=== PATIENT | female | born 2000 | race Native Hawaiian/Other Pacific Islander ===

== ENCOUNTER → 2020-03-11 | Outpatient (CLI) | payer MEDICAID ==
--- NOTE | 2020-03-11 16:55 | RADIOLOGY REPORT (SQ) ---
EXAM DESCRIPTION: U/S [id number] TRNABD 1GES W/ODOP IMAGES COMPLETED DATE/TIME: 03/11/2020 3:39 pm REASON FOR STUDY: Z34.81 ENCOUNTER FOR SUPRVSN OF NORMAL , FIRST TRIMESTER Z34.81 ENCOUNTE R FOR SUPRVSN OF NORMAL , FIRST TRIM COMPARISON: None. TECHNIQUE: Transabdominal static and realtime grayscale images acquired of the pelvis. Additional se lected spectral and color Doppler images recorded. All images stored on PACs. bHCG: Unknown CLINICAL DATES: LMP 12/21/2019 11 weeks 4 days LIMITATIONS: None. FINDINGS: FETUS: Single Living intrauterine . ULTRASOUND EGA: 10 weeks 4 days ULTRASOUND RICK: 10/03/2020 EFW: Not applicable less than 20 weeks. CRL: 3.7 cm. FHR: 158 beats per minute. SURVEY: Too early to assess. AMNIOTIC FLUID: Adequate amount. PLACENTA: Not yet developed due to early gestation. SUBCHORIONIC BLEED: No SIZE OF BLEED: Not applicable. UTERUS: No masses. No anomalies. CERVICAL LENGTH: 1.9 cm. Closed. RIGHT ADNEXA: Normal ovary with normal vascular flow. 2.9 x 1.5 x 1.6 cm. No adnexal free fluid. No adnexal masses. LEFT ADNEXA: Normal ovary with normal vascular flow. 14 mm corpus luteum. 3 x 2.3 x 1.7 cm. No adnexal free fluid. No adnexal masses. FREE FLUID: None. OTHER: No other significant finding. IMPRESSION: LIVING INTRAUTERINE . EGA 10 weeks 4 days Trimester of : First trimester - 0 to 13 weeks. TECHNICAL DOCUMENTATION: JOB ID: [id number] [employer] All Rights Reserved rev-11/29 Reading location - IP/workstation name: [email or web address]
== END ==
LOC: RAD 15:07
PROVIDERS: ATTEND Midwife
DX: O34.81 Maternal care for other abnormalities of pelvic organs, first trimester (principal); N83.12 Corpus luteum cyst of left ovary; Z3A.10 10 weeks gestation of pregnancy
CPT/HCPCS: 76801

== ENCOUNTER 2020-03-21 17:21 | Emergency (ER) | payer MEDICAID ==
[2020-03-21] MEDS ORDERED: METOCLOPRAMIDE HCL 10 MG TABLET PO ONE (17:54)
--- NOTE | 2020-03-21 17:59 | ER Document Report ---
ED Medical Screen (RME) - General Chief Complaint: Nausea/Vomiting Stated Complaint: VOMITING,NAUSEA,WEAKNESS Time Seen by Provider: 03/21/20 17:48 Mode of Arrival: Wheelchair Information source: Patient Notes: 19-year-old female presents to ED for complaint of nausea and vomiting for her entire . She states she is 12 weeks is about. Last menstrual period was about December 29. She states that for the last 2 days the nausea and vomiting has been much worse. She states she did have an ultrasound about a month ago that showed she was and her 12 weeks is by the ultrasound. She states she did have a miscarriage before so she is 2 para 1. She lives with her sister. She does not work at this time. She does go to the health department. Patient is alert oriented respirations regular nonlabored speaking in full sentences. She states she has some stomach soreness due to the vomiting but does not have any pain at this time. I have ordered her some R eglan p.o. I have greeted and performed a rapid initial assessment of this patient. A comprehensive ED assessment and evaluation of the patient, analysis of test results and completion of medical decision making process will be conducted by an additional ED providers. Physical Exam - Vital signs Vitals: Temp Pulse Resp BP Pulse Ox 98.9 F 124 H 20 116/77 97 03/21/20 17:03/21/20 17:03/21/20 17:03/21/20 17:03/21/20 17:26 Course - Vital Signs Vital signs: Temp Pulse Resp BP Pulse Ox 98.9 F 124 H 20 116/77 97 03/21/20 17:26 03/21/20 17:26 03/21/20 17:03/21/20 17:03/21/20 17:26
[2020-03-21 18:43] LABS: APPEARANCE,URINE SLIGHTLY-CLOUDY; BILIRUBIN,URINE NEGATIVE (NEGATIVE); COLOR,URINE YELLOW; GLUCOSE, URINE NEGATIVE (NEGATIVE); KETONES,URINE 80 mg/dL (NEGATIVE); LEUKOCYTE ESTERASE,URINE NEGATIVE (NEGATIVE); NITRITE,URINE NEGATIVE (NEGATIVE); PROTEIN,URINE 30 mg/dL (NEGATIVE); URINE SPECIFIC GRAVITY 1.025; UROBILINOGEN,URINE NEGATIVE mg/dL (<2.0)
[2020-03-21 18:48] LABS: ABSOLUTE LYMPHOCYTES (AUTO) 1.3 10^3/uL (0.5-4.7); ABSOLUTE MONOCYTES (AUTO) 0.4 10^3/uL (0.1-1.4); ABSOLUTE NEUT (AUTO) 6.4 10^3/uL (1.7-8.2); BASOPHILS % (AUTO) 0.3 % (0-2); EOSINOPHILS % (AUTO) 0.4 % (0-6); HEMATOCRIT 42.6 % (36.0-47.0); HEMOGLOBIN 14.5 g/dL (12.0-15.5); LYMPHOCYTES % (AUTO) 15.7 % (13-45); MEAN CORPUSCULAR HEMOGLOBIN 30.6 pg (27.0-33.4); MEAN CORPUSCULAR VOLUME 90 fl (80-97); MONOCYTES % (AUTO) 5.3 % (3-13); PLATELET COUNT 223 10^3/uL (150-450); RED BLOOD COUNT 4.74 10^6/uL (3.72-5.28); SEGMENTED NEUTROPHILS % (AUTO) 78.3 % (42-78); TOTAL CELLS COUNTED % (AUTO) 100 %; WHITE BLOOD COUNT 8.2 10^3/uL (4.0-10.5)
[2020-03-21 19:03] LABS: ALBUMIN 4.6 g/dL (3.5-5.0); ALKALINE PHOSPHATASE 51 U/L (38-126); ANION GAP 16 (5-19); ASPARTATE AMINO TRANSFERASE 22 U/L (14-36); BILIRUBIN,DIRECT 0.3 mg/dL (0.0-0.4); BILIRUBIN,TOTAL 0.7 mg/dL (0.2-1.3); BLOOD UREA NITROGEN 14 mg/dL (7-20); CALCIUM 10.2 mg/dL (8.4-10.2); CARBON DIOXIDE 16 mmol/L (22-30); CHLORIDE 101 mmol/L (98-107); GLUCOSE 85 mg/dL (75-110); POTASSIUM 4.3 mmol/L (3.6-5.0); TOTAL PROTEIN 7.6 g/dL (6.3-8.2)
[2020-03-21] MEDS ORDERED: ONDANSETRON 4 MG TAB.RAPDIS PO ONE (19:54)
--- NOTE | 2020-03-21 19:54 | ER Document Report ---
ED General - General Chief Complaint: Nausea/Vomiting Stated Complaint: VOMITING,NAUSEA,WEAKNESS Time Seen by Provider: 03/21/20 17:48 Primary Care Provider: 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 Desired . Presents with nausea vomiting for several days worse for the last 2 days. Intermittent worse in the morning would last all day. Not taking any medicine. No fever or urinary symptoms. Followed at the health department. Had one ultrasound a few days ago. - Related Data Allergies/Adverse Reactions: No Known Allergies Allergy (Unverified 03/21/20 17:58) Past Medical History - General Information source: Patient - Social History Smoking Status: Never Smoker Chew tobacco use (# tins/day): No Frequency of alcohol use: None Drug Abuse: None Family History: None Patient has homicidal ideation: No Review of Systems - Review of Systems Notes: REVIEW OF SYSTEMS GEN: Denies fever, chills, weight loss ENT: Denies sore throat, nasal discharge, ear pain EYES: Denies blurry vision, eye pain, discharge CV: Denies chest pain, palpitations, edema RESP: Denies cough, shortness of breath, wheezing GI: Nausea and vomiting MSK: Denies joint pain/swelling, edema, SKIN: Denies rash, skin lesions LYMPH: Denies swollen glands/lymph nodes NEURO: Denies headache, focal weakness or numbness, dizziness PSYCH: Denies depression, suicidal or homicidal ideation PHYSICAL EXAMINATION General: No acute distress, well-nourished Head: Atraumatic, normocephalic ENT: Mouth normal, oropharynx moist, no exudates or tonsillar enlargement Eyes: Conjunctiva normal, pupils equal, lids normal Neck: No JVD, supple, no guarding CVS: Normal rate, regular rhythm, no murmurs Resp: No resp distress, equal and normal breath sounds bilaterally GI: Nondistended, soft, no tenderness to palpation, no rebound or guarding Ext: No deformities, no edema, normal range of motion in upper and lower ext Back: No CVA or midline TTP Skin: No rash, warm Lymphatic: No lymphadeopathy noted Neuro: Awake, alert. Face symmetric. GCS 15. Physical Exam - Vital signs Vitals: Temp 98.9 F 03/21/20 17:22 Course - Re-evaluation Re-evalutation: 03/21/20 22:57 Nausea vomiting normal labs healthy baby on ultrasound symptoms better with triage Reglan Given final dose of Zofran prescribed B6/Unisom with Phenergan rescue and referred back to [facility]. No evidence of UTI or bacteriuria Urine contaminated but has no symptoms I have discussed with the patient there likely diagnosis, aftercare plan, follow-up plans and my usual and customary return precautions. They verbalized understanding of this. - Vital Signs Vital signs: Temp Pulse Resp BP Pulse Ox 98.5 F 85 20 143/93 H 96 03/21/20 21:18 03/21/20 21:18 03/21/20 21:18 03/21/20 21:18 03/21/20 21:18 - Laboratory Result Diagrams: 03/21/20 18:09 03/21/20 18:09 Laboratory results interpreted by me: 03/21/20 03/21/20 03/21/20 18:09 18:09 18:09 Seg Neutrophils % 78.3 H Sodium 133.2 L Carbon Dioxide 16 L Beta HCG, Quant 119706.00 H Urine Protein 30 H Urine Ketones 80 H Procedures - Ultrasound/Bedside Ultrasound/Bedside Ultrasound: Other - Transabdominal OB limited. Gestational sac within myometrium, embryo, mobile, with rapid heart rate in the 150 range. Discharge - Discharge Clinical Impression: Nausea/vomiting in Condition: Good Disposition: HOME, SELF-CARE Instructions: Antinausea Medication ([facility]), Hyperemesis Gravidarum ([facility]) Prescriptions: Doxylamine Succinate [Unisom] 25 mg PO BIDP PRN #30 tablet PRN Reason: Pyridoxine HCl [Vitamin B-6 Tablet 50 mg] 50 mg PO DAILY PRN #1 pkg PRN Reason: Referrals: [facility] [Outside] - Follow up as needed
[2020-03-21 21:21] VITALS: BP 143/93
== END 2020-03-21 21:00 | disposition home or self-care (01) ==
LOC: ER 17:21
DX: O21.9 Vomiting of pregnancy, unspecified (principal); O26.891 Other specified pregnancy related conditions, first trimester; R53.1 Weakness; Z3A.11 11 weeks gestation of pregnancy
CPT/HCPCS: 99284; 36415; 87086; 84702; 85025; 80053; 81001; S0119; J3490

== ENCOUNTER 2020-05-19 19:49 | Outpatient (CLI) | payer MEDICAID ==
[2020-05-19 21:22] LABS: APPEARANCE,URINE CLOUDY; BILIRUBIN,URINE NEGATIVE (NEGATIVE); COLOR,URINE YELLOW; GLUCOSE, URINE NEGATIVE (NEGATIVE); KETONES,URINE NEGATIVE (NEGATIVE); LEUKOCYTE ESTERASE,URINE NEGATIVE (NEGATIVE); NITRITE,URINE NEGATIVE (NEGATIVE); PROTEIN,URINE NEGATIVE (NEGATIVE); UROBILINOGEN,URINE NEGATIVE mg/dL (<2.0)
[2020-05-19 21:25] LABS: URINE AMPHETAMINES SCREEN NEGATIVE; URINE BARBITURATES SCREEN NEGATIVE; URINE BENZODIAZEPINES SCREEN NEGATIVE; URINE COCAINE SCREEN NEGATIVE; URINE MARIJUANA (THC) SCREEN NEGATIVE; URINE METHADONE SCREEN NEGATIVE; URINE PHENCYCLIDINE SCREEN NEGATIVE
--- NOTE | 2020-05-19 22:22 | RADIOLOGY REPORT (SQ) ---
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 TECHNIQUE: Multiple grayscale and color Doppler images of the pelvis were obtained transabdominally. COMPARISON: None available for this . FINDINGS: A single intrauterine gestation is seen, which is variable in position. The placenta is posterior in location, and free of internal os of the cervix. The cervix measures at least 4.7 cm in length. The estimated heart rate is approximately 136 bpm. The MARCIA is subjectively within normal limits with the deepest vertical pocket of approximately 5.7 cm. IMPRESSION: A single, live intrauterine gestation is seen which is currently variable in position. The cervix measures at least 4.7 cm in length. Amniotic fluid is subjectively within normal limits. Interval follow-up with an obstetric care provider is recommended.
== END 2020-05-19 22:25 | disposition home or self-care (01) ==
LOC: LC 19:49
PROVIDERS: ATTEND Obstetrics & Gynecology
DX: O26.892 Other specified pregnancy related conditions, second trimester (principal); R10.2 Pelvic and perineal pain; Z3A.20 20 weeks gestation of pregnancy; Z02.83 Encounter for blood-alcohol and blood-drug test
CPT/HCPCS: 76815; 80307; 81001